=== PATIENT | female | born 1990 | race Asian ===

== ENCOUNTER 2016-09-13 09:20 | Inpatient (IN) | payer BC, OTHER ==
[2016-09-13] MEDS ORDERED: TUBERCULIN PPD 5 TU/0.1ML SYRINGE (IN PATIENT USE ONLY) ID ONE (09:52)
[2016-09-13] MEDS ORDERED: ELECTROLYTE-148 SOLN 1,000 ML IV ONE (10:00)
[2016-09-13 10:22] VITALS: BMI 23.6
[2016-09-13 10:33] LABS: BASOPHIL 0.3 % (0-2.0); EOSINOPHIL 0.4 % (0-4.5); MCH 28.8 pg (25.7-33.7); MCHC 33.6 g/dl (32.0-36.0); MEAN CELL VOLUME 85.6 fl (80-96); NEUTROPHILS 77.4 % (42.8-82.8); PLATELET COUNT 203 K/MM3 (134-434); RDW 13.6 % (11.6-15.6)
[2016-09-13 10:38] LABS: INR 0.91 (0.82-1.09)
[2016-09-13 10:41] LABS: ACTIVATED PTT 31.6 SECONDS (26.9-34.4)
[2016-09-13 10:50] LABS: ANION GAP 9 (8-16); CALCIUM 9.2 mg/dL (8.5-10.1); CO2 22 mmol/L (21-32); CREATININE 0.4 mg/dL (0.55-1.02); GLUCOSE,RANDOM 82 mg/dL (74-106)
--- NOTE | 2016-09-13 11:05 | HP ---
Past Medical History - Admission History of Present Illness: 25 yo @ 39 6/7 wks by first trimester ultrasound, EDC 09/14/2016 uncomplicated Patient presents with chief complaint of contractions which began this morning at 0400 and increased in intensity and frequency. She presented to L&D and was found to be 3 cm and was admitted. She reports movement, denies leakage of fluid or vaginal bleeding. History Source: Patient Limitations to Obtaining History: No Limitations - Past Medical History Cardiovascular: No: HTN Pulmonary: No: Asthma Gastrointestinal: No: GERD ...: 1 ...Para: 0 ...Term: 0 ...: 0 ...Spon : 0 ...Induced : 0 ...Multiple Gestation: 0 ...LMP: 12/11/15 ... Weeks Gestation by Dates: 39.4 ...EDC by Dates: 09/16/16 ...EDC by Sono: 09/14/16 Heme/Onc: No: Anemia - Past Surgical History Past Surgical History: Yes: None Hx Myomectomy: No Hx Transabdominal Cerclage: No - Smoking History Smoking history: Never smoked Have you smoked in the past 12 months: No - Alcohol/Substance Use Hx Alcohol Use: No History of Substance Use: reports: None - Social History History of Recent Travel: No Home Medications - Allergies Allergies/Adverse Reactions: Allergies Allergy/AdvReac Type Severity Reaction Status Date / Time No Known Allergies Allergy Verified 09/13/16 11:40 - Home Medications Home Medications: Ambulatory Orders Tablet 1 tablet PO DAILY 09/13/16 Family Disease History - Family Disease History Family History: Denies Review of Systems - Review of Systems Constitutional: reports: No Symptoms Cardiovascular: reports: No Symptoms Respiratory: reports: No Symptoms Gastrointestinal: reports: No Symptoms Genitourinary: reports: No Symptoms Neurological: reports: No Symptoms Endocrine: reports: No Symptoms Hematology/Lymphatic: reports: No Symptoms Psychiatric: reports: No Symptoms Physical Exam - Maternity Vital Signs: Vital Signs Temperature 98.4 F 09/13/16 10:15 Pulse Rate 72 09/13/16 10:15 Respiratory Rate 18 09/13/16 10:15 Blood Pressure 112/72 09/13/16 10:15 O2 Sat by Pulse Oximetry (%) Constitutional: Yes: Well Nourished, No Distress, Calm Cardiovascular: Yes: Regular Rate and Rhythm Lungs: Clear to auscultation - Abdominal Exam/OB Fundal Height: 40 Number of Fetuses: Single Presentation: Vertex Contractions: Yes Regularity: Regular Intensity: Mod/Strong Monitor Mode: External Heart Rate (range): 130 Category: I Accelerations: Non-Uniform Decelerations: None - Vaginal Exam/OB Vaginal Bleediing: No Dilatation (cm): 4 Effacement (%): 80 Amniotic Membrane Status: Ruptured Amniotic Fluid: Yes: Clear Station: -2 - Physical Exam Edema: No Psychiatric: Yes: Alert, Oriented - Labs Lab Results: CBC, BMP 09/13/16 10:00 PNL: O positive, antibody negative, RPR NR, HBS Ag negative, Rubella Immune, GBS negative, HIV negative Hemorrhage Risk Assessment - Risk Factors Medium Risk Factors: Yes: None High Risk Factors: Yes: None Risk Score: 1 Risk Level: Medium Risk Assessment/Plan 25 yo @ 39 9/7 wks in active labor 1. Admit to L&D 2. Routine labs collected and sent 3. GBS negative 4. Will offer pain medication upon patient's request 5. Will continue expectant management
[2016-09-13] MEDS ORDERED: FENTANYL/BUPIVACAINE/NS/PF - PCEA - 50 ML DISP.SYRIN EP SCH (12:40)
[2016-09-13] MEDS ORDERED: OXYTOCIN 15 UNITS/ LR 250 ML 250 ML IVPB SCH (12:45)
--- NOTE | 2016-09-13 16:12 | PN ---
Ante-Partal Exam - Subjective Subjective: Patient reports pain with contractions Vital Signs: Vital Signs Temperature 98.8 F 09/13/16 15:07 Pulse Rate 86 09/13/16 15:10 Respiratory Rate 18 09/13/16 15:10 Blood Pressure 131/76 09/13/16 15:10 O2 Sat by Pulse Oximetry (%) 98 09/13/16 13:40 Bleeding: Yes Bleeding Description: Mild Headache: No Visual changes: No Right upper quadrant pain: No - Contractions Contractions: Yes Regularity: Regular Intensity: Mod/Strong Monitor Mode: External - Exam during Labor Heart Rate: 135 Variability: Moderate Category: I Monitor Accelerations: Present Monitor Decelerations: None Exam: Vaginal Dilatation (cm): 9 Effacement (%): 100 Amniotic Membrane Status: Ruptured Presentation: Vertex Station: 0 - Intrapartum Hemorrhage Risk Medium Risk Factors: None High Risk Factors: None Risk Score: 0 Risk Level: Low Risk - Assessment/Plan Assessment/Plan: 25 yo active labor 1. good cervical change will continue pitocin 2. GBS negative 3. Category I FHT 4. pain well controlled with epidural 5. Will continue expectant management
--- NOTE | 2016-09-13 21:02 | PN ---
Delivery - Delivery Vaginal Delivery: No Problems Type of Anesthesia: Epidural Episiotomy/Laceration: Left Mediolateral EBL (cc): 300 Delivery, Single - Stages of Labor Date 1st Stage Initiatied: 09/13/16 Time 1st Stage Initiated: 04:00 Date 2nd Stage Initiated: 09/13/16 Time 2nd Stage Initiated: 18:10 Date of Delivery: 09/13/16 Time of Delivery: 20:38 Date Placenta Delivered: 09/13/16 Time Placenta Delivered: 20:52 Placenta: Yes: Spontaneous - Condition of Gender: Male Position: Right, OA - 1 Minute Total Score: 8 5 Minutes Total Score: 9 - Feeding Plan Initial Plan: Elected not to breastfeed exclusively throughout hospitalization Remarks - Remarks Remarks: Patient progressed to fully dilated and at 2037 via delivered a viable female infant in GAGANDEEP position, APGARs 8,9. Weight and length unknown at this time. Head delivered spontaneously, shoulders delivered transversely without difficulty. Infant with spontaneous cry and placed handed to waiting nursing staff. Nose and mouth was bulb suctioned. Cord was clamped and cut. Perineum and vagina examined, a second degree Left labial/lateral laceration that extended to the left sulcus was noted and repaired in the usual fashion. Rectal exam revealed no sutures in rectum. Placenta was delivered spontaneously and intact. 20 units of pitocin in 1 L IVF was given. All counts correct x 2. Mother and stable in LDR. EBL 300cc.
[2016-09-13 21:05] LABS: ARTERIAL BLOOD GAS BASE EXCESS -8.7 meq/l (-2-2); ARTERIAL BLOOD GAS HCO3 20.4 meq/L (22-26)
[2016-09-13 21:06] LABS: ART PUNCT SITE OTHER
[2016-09-13] MEDS ORDERED: WITCH HAZEL 50% (TUCKS) 40 PAD/JAR PAD TP PRN (21:07)
[2016-09-13] MEDS ORDERED: BENZOCAINE 20% 57 GM BOTTLE TP PRN (21:07)
[2016-09-13] MEDS ORDERED: BENZOCAINE 28 GM HEMORRHOIDAL OINTMENT TP PRN (21:07)
[2016-09-13] MEDS ORDERED: BISACODYL 10 MG SUPP.RECT RC PRN (21:07)
[2016-09-13] MEDS ORDERED: METHYLERGONOVINE MALEATE 0.2 MG/1 ML AMP IM PRN (21:07)
[2016-09-13] MEDS ORDERED: oxyCODONE HCL 5 MG TABLET PO PRN (21:07)
[2016-09-13 21:09] LABS: ARTERIAL BLD GAS O2 SATURATION 28.8 % (90-98.9); ARTERIAL BLOOD GAS PO2 20.6 mmHg (80-100); ARTERIAL BLOOD GAS pH 7.17 (7.35-7.45)
[2016-09-13] MEDS ORDERED: D5W-LR W/ 20 UNITS OXYTOCIN 1,000 ML IV SCH (21:15)
[2016-09-13 21:19] LABS: VENOUS BLOOD GAS HCO3 19.2 meq/L (19-25)
[2016-09-13 21:20] LABS: VENOUS PH 7.23 (7.32-7.42)
[2016-09-13] MEDS: IBUPROFEN 600 MG TABLET (FP) PO PRN (22:30)
[2016-09-13] MEDS: ACETAMINOPHEN 325 MG TABLET (FP) PO PRN (22:30)
[2016-09-14] MEDS: IBUPROFEN 600 MG TABLET (FP) PO PRN ×4 (04:57→21:45)
[2016-09-14] MEDS: ACETAMINOPHEN 325 MG TABLET (FP) PO PRN ×4 (04:59→21:46)
[2016-09-14 07:38] LABS: BASOPHIL 0.2 % (0-2.0); EOSINOPHIL 0.1 % (0-4.5); MCH 28.5 pg (25.7-33.7); MCHC 33.3 g/dl (32.0-36.0); MEAN CELL VOLUME 85.7 fl (80-96); MEAN PLT VOLUME 8.6 fl (7.5-11.1); NEUTROPHILS 80.3 % (42.8-82.8); PLATELET COUNT 165 K/MM3 (134-434); RDW 13.3 % (11.6-15.6); WHITE BLOOD COUNT 16.2 K/mm3 (4.0-10.0)
[2016-09-14] MEDS: PRENATAL VITAMINS W/ FOLIC ACID TABLET (FP) PO SCH (09:25)
[2016-09-14] MEDS: FERROUS SO4 325 MG TABLET (FP) PO SCH ×3 (09:25→17:09)
--- NOTE | 2016-09-14 09:56 | PN ---
Post Progress Note - Subjective Subjective: Patient without acute complaints. Reports tolerating oral intake without nausea or vomiting. Ambulating without dizziness. Denies fevers or chills. Pain well controlled with oral pain medication. without difficulty. Passing flatus. Post Day: 1 Type of Delivery: Vital Signs: Vital Signs Temperature 99.3 F 09/14/16 04:00 Pulse Rate 74 09/14/16 04:00 Respiratory Rate 20 09/14/16 04:00 Blood Pressure 125/64 09/14/16 04:00 O2 Sat by Pulse Oximetry (%) 100 09/13/16 22:00 Breast Exam: Yes: Soft Uterus: Yes: Fundus Firm, Fundus below umbilicus, Non-tender Abdomen/GI: Yes: Abdomen soft, Passing flatus, Tolerating PO. No: Tender Lochia: Yes: Serosa Lochia, amount: Small Extremities: Yes: Calves non-tender. No: Edema Perineum: Yes: Laceration Activity: Ambulating - Labs Labs: CBC WBC 16.2 K/mm3 (4.0-10.0) H D 09/14/16 06:00 RBC 3.66 M/mm3 (3.60-5.2) 09/14/16 06:00 Hgb 10.4 GM/dL (10.7-15.3) L D 09/14/16 06:00 Hct 31.4 % (32.4-45.2) L D 09/14/16 06:00 MCV 85.7 fl (80-96) 09/14/16 06:00 MCH 28.5 pg (25.7-33.7) 09/14/16 06:00 MCHC 33.3 g/dl (32.0-36.0) 09/14/16 06:00 RDW 13.3 % (11.6-15.6) 09/14/16 06:00 Plt Count 165 K/MM3 (134-434) 09/14/16 06:00 MPV 8.6 fl (7.5-11.1) 09/14/16 06:00 Neutrophils % 80.3 % (42.8-82.8) 09/14/16 06:00 Lymphocytes % 11.7 % (8-40) D 09/14/16 06:00 Monocytes % 7.7 % (3.8-10.2) 09/14/16 06:00 Eosinophils % 0.1 % (0-4.5) 09/14/16 06:00 Basophils % 0.2 % (0-2.0) 09/14/16 06:00 Assessment/Plan 25 yo PPD # 1 s/p , afebrile, vital signs stable, doing well 1. Continue routine care 2. CBC stable 3. Rh positive status, no rhogam indicated 4. Encourage ambulation 5. Continue oral pain medication 6. Anticipate discharge home day #2
[2016-09-14] MEDS ORDERED: DIPHTH,PERTUSS(ACELL),TET 0.5 ML DISP.SYRIN IM ONE (10:00)
[2016-09-14] MEDS ORDERED: SENNOSIDES/DOCUSATE COMBO (SENNA PLUS) TABLET (UD) PO PRN (22:00)
--- NOTE | 2016-09-15 07:49 | DS ---
Physical Exam-OPHTHALMIC PHOTOGRAPHER Vital Signs: Vital Signs Temperature 98.6 F 09/14/16 22:00 Pulse Rate 98 H 09/14/16 22:00 Respiratory Rate 18 09/14/16 22:00 Blood Pressure 121/76 09/14/16 22:00 O2 Sat by Pulse Oximetry (%) 100 09/13/16 22:00 Constitutional: Yes: Well Nourished, No Distress, Calm Eyes: Yes: WNL, Conjunctiva Clear, EOM Intact HENT: Yes: WNL, Atraumatic, Normocephalic Neck: Yes: WNL, Supple, Trachea Midline Cardiovascular: Yes: WNL, Regular Rate and Rhythm Respiratory: Yes: WNL, Regular, CTA Bilaterally Gastrointestinal: Yes: WNL ...Rectal Exam: Yes: WNL Renal/: Yes: WNL ....Post : Yes: Uterus firm, Uterus non-tender, Slight lochia rubra Breast(s): Yes: WNL Musculoskeletal: Yes: WNL Extremities: Yes: WNL Edema: No Integumentary: Yes: WNL Neurological: Yes: WNL, Alert, Oriented ...Motor Strength: WNL Psychiatric: Yes: WNL, Alert, Oriented Labs: CBC, BMP 09/14/16 06:00 09/13/16 10:00 Delivery - Delivery Vaginal Delivery: No Problems, Spontaneous Type of Anesthesia: Local, Epidural Episiotomy/Laceration: Left Mediolateral, Vaginal Extension/lac, 2nd degree EBL (cc): 300 Delivery, Single - Stages of Labor Date 1st Stage Initiatied: 09/13/16 Time 1st Stage Initiated: 04:00 Date 2nd Stage Initiated: 09/13/16 Time 2nd Stage Initiated: 18:10 Date of Delivery: 09/13/16 Time of Delivery: 20:38 Time Placenta Delivered: 20:52 Placenta: Yes: Spontaneous - Condition of Electrician Wiring/Circular Knitter Present: No Gender: Male Weight: 7 lb 8 oz Position: Right, OA Total Hours ROM (Hrs/Mins): 9hrs/52mins - 1 Minute Total Score: 8 5 Minutes Total Score: 9 - [place] Feeding Plan Initial Plan: Elected not to breastfeed exclusively throughout hospitalization Discharge Summary Reason For Visit: LABOR Procedures: Principal: Condition: Good - Instructions Diet, Activity, Other Instructions: regular diet, follow up office 4 weeks Referrals: Idania Patel MD [Staff Physician] - - Home Medications Comprehensive Discharge Medication List: Ambulatory Orders Tablet 1 tablet PO DAILY 09/13/16 Ibuprofen [Motrin -] 600 mg PO QID #28 tablet 09/14/16
[2016-09-15] MEDS: FERROUS SO4 325 MG TABLET (FP) PO SCH ×2 (08:34→12:00)
[2016-09-15] MEDS: ACETAMINOPHEN 325 MG TABLET (FP) PO PRN (08:35)
[2016-09-15] MEDS: IBUPROFEN 600 MG TABLET (FP) PO PRN (08:35)
[2016-09-15] MEDS: PRENATAL VITAMINS W/ FOLIC ACID TABLET (FP) PO SCH (09:40)
[2016-09-15 10:54] VITALS: BP 128/74; PULSE 74; TEMP 97.9
== END 2016-09-15 13:40 | disposition home or self-care (01) | DRG 775 ==
LOC: JLDR 09:20 → J3W 23:30
PROVIDERS: ADMIT Obstetrics & Gynecology; ATTEND Obstetrics & Gynecology
PROC: 10E0XZZ Delivery of Products of Conception, External Approach (ICD-10-PCS; principal; 2016-09-13)
PROC: 0KQM0ZZ Repair Perineum Muscle, Open Approach (ICD-10-PCS; 2016-09-13)
DX: O70.1 Second degree perineal laceration during delivery (principal); Z37.0 Single live birth; Z3A.39 39 weeks gestation of pregnancy
CPT/HCPCS: 36415; 36600; 59409; 80048; 82803; 85025; 85610; 85730; 86593; 86850; 86900; 86901; 90715

== ENCOUNTER 2018-05-10 23:20 | Inpatient (IN) | payer BC, OTHER ==
[2018-05-11] MEDS ORDERED: OXYTOCIN 20 UNITS in 0.9% NS 20 UNIT/1,000 ML INFUS.BAG IV ONE (00:02)
[2018-05-11] MEDS ORDERED: AMPICILLIN SODIUM 2 GM VIAL ONE (00:03)
--- NOTE | 2018-05-11 00:38 | HP ---
Past Medical History - Primary Care Physician PCP:: [place] - Admission Chief Complaint: 27yo P1 with at EGA 40wk in spontaneous labor. History of Present Illness: Vag GBS (+) History Source: Patient, Medical Record Limitations to Obtaining History: No Limitations - Past Medical History SUPERVISOR AGENCY APPOINTMENTS: No: Alzheimer's, CVA, Dementia, Migraine, Multiple Sclerosis, Peripheral Neuropathy, Parkinson's, Seizure, Syncope, TIA, Vertigo, Other Cardiovascular: No: AFIB, Aneurysm, Aortic Insufficiency, Aortic Stenosis, CAD, CHF, Deep Vein Thrombosis, HTN, Hyperlipdemia, ID, Mitral Insufficiency, Mitral Stenosis, Murmur, Pulmonary Hypertension, Other Pulmonary: No: Asthma, Bronchitis, Cancer, COPD, O2 Dependent, Pneumonia, Previously Intubated, Pulmonary Embolus, Pulmonary Fibrosis, Sleep Apnea, Other Gastrointestinal: No: Ascites, Cancer, Constipation, Crohn's Disease, Diverticulitis, Diverticulosis, Esophageal Varices, Gastritis, GERD, GI Bleed, Hemorrhoids, Hiatal Hernia, Inflamatory Bowel Disease, Irritable Bowel Disease, Pancreatitis, Peptic Ulcer Disease, Ulcerative Colitis, Other Hepatobiliary: No: Cirrhosis, Cholelithiasis, Cholecystitis, Choledocholithiasis , Hepatitis A, Hepatitis B, Hepatitis C, Other Renal/: No: Renal Failure, Renal Inusuff, BPH, Cancer, Hematuria, Hemodialysis , Neurogenic Bladder, Renal Calculi, UTI, Other Reproductive: No: Ectopic , Endometriosis, Fibroids, PID, Polycystic Ovary Syndrome, Postmenopausal, Other ...: 2 ...Para: 1 ( x 1) ...Term: 1 ... Weeks Gestation by Dates: 40 Heme/Onc: No: Anemia, B12 Deficiency, Bleeding Disorder, Cancer, Current Chemotherapy, Current Radiation Therapy, Hemochromatosis, Hypercoaguable State, Myeloproliferative Synd, Sickle Cell Disease, Sickle Cell Trait, Thrombocytopenia, Other Infectious Disease: No: AIDS, C-Diff, Herpes Zoster, HIV, MRSA, STD's, Tuberculosis, VREF, Other Psych: No: Addictions, Anxiety, Bipolar, Depression, Panic, Psychosis, Schizophrenia, Other Musculoskeletal: No: Bursitis, Chronic low back pain, Hemiparesis, Hemiplegia, Osteoarthritis, Paraplegia, Other Rheumatology: No: Fibromyalgia, Gout, Lupus, Rheumatoid Arthritis, Sarcoidosis, Vasculitis, Other ENT: No: Allergic Rhinitis, Sinusitis, Other Endocrine: Yes: Hypothyroidism Dermatology: No: Basal Cell, Cellulitis, Eczema, Melanoma, Psoriasis, Squamous Cell, Other - Past Surgical History Past Surgical History: Yes: None Hx Myomectomy: No Hx Transabdominal Cerclage: No - Smoking History Smoking history: Never smoked Have you smoked in the past 12 months: No - Alcohol/Substance Use Hx Alcohol Use: No History of Substance Use: reports: None - Social History Usual Living Arrangement: Yes: With Spouse, With Child ADL: Independent History of Recent Travel: No Home Medications - Allergies Allergies/Adverse Reactions: Allergies Allergy/AdvReac Type Severity Reaction Status Date / Time No Known Allergies Allergy Verified 05/11/18 00:16 - Home Medications Home Medications: Ambulatory Orders Tablet 1 tablet PO DAILY 09/13/16 Levothyroxine Sodium [Synthroid] 75 mcg PO DAILY 05/11/18 Family Disease History - Family Disease History Family Disease History: Diabetes: Father Review of Systems - Review of Systems Constitutional: reports: Other (Labor pains) Eyes: reports: No Symptoms HENT: reports: No Symptoms Neck: reports: No Symptoms Cardiovascular: reports: No Symptoms Respiratory: reports: No Symptoms Gastrointestinal: reports: No Symptoms Genitourinary: reports: No Symptoms Breasts: reports: No Symptoms Reported Musculoskeletal: reports: No Symptoms Integumentary: reports: No Symptoms Neurological: reports: No Symptoms Endocrine: reports: No Symptoms Hematology/Lymphatic: reports: No Symptoms Psychiatric: reports: No Symptoms Pain Intensity: 10 Physical Exam - Maternity Constitutional: Yes: Well Nourished, Moderate Distress Eyes: Yes: WNL, Conjunctiva Clear HENT: Yes: WNL, Atraumatic, Normocephalic Neck: Yes: WNL, Supple, Trachea Midline Cardiovascular: Yes: WNL, Regular Rate and Rhythm Lungs: Clear to auscultation, Normal air movement Breast(s): Yes: WNL - Abdominal Exam/OB Fundal Height: 39 Number of Fetuses: Single Presentation: Vertex Contractions: Yes Regularity: Regular Intensity: Mod/Strong Monitor Mode: External Heart Rate (range): 150 Heart Rate Location: Midline Category: II Accelerations: None Decelerations: None - Vaginal Exam/OB Vaginal Bleediing: Yes, Light Speculum Exam: No Dilatation (cm): 9 Effacement (%): 100 Amniotic Membrane Status: Ruptured (SROM) Amniotic Fluid: Yes: Clear Presentation: Vertex/Position Station: 0 - Physical Exam Musculoskeletal: Yes: WNL Extremities: Yes: WNL Edema: Yes Edema: LLE: Trace, RLE: Trace Integumentary: Yes: WNL Deep Tendon Reflex Grade: Normal +2 ...Motor Strength: WNL Psychiatric: Yes: WNL, Alert, Oriented Hemorrhage Risk Assessment - Risk Factors Medium Risk Factors: Yes: None High Risk Factors: Yes: None Risk Score: 1 Risk Level: Medium Risk Assessment/Plan 27yo P1 with at EGA 40wk in spontaneous labor. Pt is in active labor. SROM now with clear fluid. progressing quickly. Anticipate .
[2018-05-11] MEDS ORDERED: AMPICILLIN - 2 GM in SODIUM CHLORIDE 100 ML IVPB ONE (00:44)
[2018-05-11] MEDS ORDERED: DEXTROSE 5%-LACTATED RINGERS 1,000 ML IV SCH (00:45)
[2018-05-11 00:46] LABS: BASO % 0.1 % (0-2.0); EOS % 0.2 % (0-4.5); HEMATOCRIT 40.1 % (32.4-45.2); HEMOGLOBIN 13.6 GM/dL (10.7-15.3); LYMPH % 16.9 % (8-40); MCH 28.3 pg (25.7-33.7); MCHC 33.9 g/dl (32.0-36.0); MEAN CELL VOLUME 83.5 fl (80-96); MEAN PLT VOLUME 8.2 fl (7.5-11.1); MONO % 5.7 % (3.8-10.2); NEUT % 77.1 % (42.8-82.8); PLATELET COUNT 227 K/MM3 (134-434); RDW 13.8 % (11.6-15.6); WHITE BLOOD COUNT 9.3 K/mm3 (4.0-10.0)
[2018-05-11 00:58] LABS: INR 0.9 (0.83-1.09); PROTHROMBIN TIME (PATIENT) 10.6 SEC (9.7-13.0)
[2018-05-11 01:01] LABS: ACTIVATED PTT 29.7 SECONDS (25.2-36.5)
[2018-05-11] MEDS ORDERED: BISACODYL 10 MG SUPP.RECT RC PRN (01:10)
[2018-05-11] MEDS ORDERED: WITCH HAZEL 50% (TUCKS) 40 PAD/JAR PAD TP PRN (01:10)
[2018-05-11] MEDS ORDERED: BENZOCAINE 28 GM HEMORRHOIDAL OINTMENT TP PRN (01:10)
[2018-05-11] MEDS ORDERED: METHYLERGONOVINE MALEATE 0.2 MG/1 ML AMP IM PRN (01:10)
[2018-05-11] MEDS ORDERED: IBUPROFEN 600 MG TABLET (FP) PO PRN (01:10)
[2018-05-11] MEDS ORDERED: BENZOCAINE 20% 57 GM BOTTLE TP PRN (01:10)
[2018-05-11 01:13] LABS: ANION GAP 8 MMOL/L (8-16); BLOOD UREA NITROGEN 9 mg/dL (7-18); CALCIUM 8.9 mg/dL (8.5-10.1); CHLORIDE 105 mmol/L (98-107); CO2 23 mmol/L (21-32); CREATININE 0.4 mg/dL (0.55-1.3); GLUCOSE,RANDOM 136 mg/dL (74-106); POTASSIUM 3.8 mmol/L (3.5-5.1); SODIUM 136 mmol/L (136-145)
[2018-05-11] MEDS ORDERED: OXYTOCIN 20 UNITS in 0.9% NS 20 UNIT/1,000 ML INFUS.BAG IV SCH (01:15)
[2018-05-11 01:45] VITALS: BMI 23.0
[2018-05-11] MEDS ORDERED: IBUPROFEN 600 MG TABLET (FP) PO ONE (01:54)
[2018-05-11] MEDS ORDERED: ACETAMINOPHEN 325 MG TABLET (FP) ONE (01:54)
[2018-05-11] MEDS: ACETAMINOPHEN 325 MG TABLET (FP) PO PRN ×2 (01:55→19:07)
[2018-05-11] MEDS: LEVOTHYROXINE NA 75 MCG TABLET (FP) PO SCH (06:17)
[2018-05-11] MEDS ORDERED: TUBERCULIN PPD 5 TU/0.1ML SYRINGE (IN PATIENT USE ONLY) ID ONE (06:30)
[2018-05-11] MEDS: PRENATAL VITAMINS W/ FOLIC ACID TABLET (FP) PO SCH (10:07)
--- NOTE | 2018-05-11 14:44 | PN ---
Delivery - Delivery Vaginal Delivery: No Problems, Spontaneous Type of Anesthesia: None Episiotomy/Laceration: None EBL (cc): 300 Delivery, Single - Stages of Labor Date 1st Stage Initiatied: 05/10/18 Time 1st Stage Initiated: 17:00 Date 2nd Stage Initiated: 05/11/18 Time 2nd Stage Initiated: 00:40 Date of Delivery: 05/11/18 Time of Delivery: 00:48 Date Placenta Delivered: 05/11/18 Time Placenta Delivered: 00:55 Placenta: Yes: Spontaneous, Normal Configuration - Condition of Infant Toll Service Observer/C2 Tactical Analysis Technician Present: No Gender: Male Weight: 3.09 kg Position: Left Total Hours ROM (Hrs/Mins): 15min - 1 Minute Total Score: 9 5 Minutes Total Score: 9 - [place] Feeding Plan Initial Plan: Elected not to breastfeed exclusively throughout hospitalization
[2018-05-11] MEDS: IBUPROFEN 600 MG TABLET (FP) PO PRN (19:09)
--- NOTE | 2018-05-11 22:45 | PN ---
Progress Note (short form) - Note Progress Note: Patient states desires circumcision for infant. Discussed risks including infection, bleeding, damage to tip of penis, and unsatisfactory result, resulting in surgical repair or repeat circumcision. Patient expressed understanding and consents to procedure. Reviewed infants chart, cleared for circumcision and normal genitalia per bin packer, Dr. Palacios
[2018-05-12] MEDS: ACETAMINOPHEN 325 MG TABLET (FP) PO PRN ×4 (03:16→20:54)
[2018-05-12] MEDS: IBUPROFEN 600 MG TABLET (FP) PO PRN ×3 (03:17→20:55)
[2018-05-12] MEDS: LEVOTHYROXINE NA 75 MCG TABLET (FP) PO SCH (06:37)
--- NOTE | 2018-05-12 07:07 | PN ---
Post Progress Note - Subjective Subjective: Patient without acute complaints. Reports tolerating oral intake without nausea or vomiting. Ambulating without dizziness. Denies fevers or chills. Pain well controlled with oral pain medication. without difficulty. Passing flatus. Post Day: 1 Type of Delivery: Vital Signs: Vital Signs Temperature 98.1 F 05/11/18 22:00 Pulse Rate 92 H 05/11/18 22:00 Respiratory Rate 18 05/11/18 22:00 Blood Pressure 112/52 L 05/11/18 22:00 O2 Sat by Pulse Oximetry (%) Breast Exam: Yes: Soft Uterus: Yes: Fundus Firm, Fundus below umbilicus, Non-tender Abdomen/GI: Yes: Abdomen soft, Passing flatus, Tolerating PO. No: Abdominal Distention, Tender Lochia: Yes: Serosa Lochia, amount: Small Extremities: Yes: Calves non-tender. No: Edema Perineum: Yes: Intact Activity: Ambulating - Labs Labs: CBC WBC 9.3 K/mm3 (4.0-10.0) 05/11/18 00:05 RBC 4.80 M/mm3 (3.60-5.2) 05/11/18 00:05 Hgb 13.6 GM/dL (10.7-15.3) 05/11/18 00:05 Hct 40.1 % (32.4-45.2) D 05/11/18 00:05 MCV 83.5 fl (80-96) 05/11/18 00:05 MCH 28.3 pg (25.7-33.7) 05/11/18 00:05 MCHC 33.9 g/dl (32.0-36.0) 05/11/18 00:05 RDW 13.8 % (11.6-15.6) 05/11/18 00:05 Plt Count 227 K/MM3 (134-434) D 05/11/18 00:05 MPV 8.2 fl (7.5-11.1) 05/11/18 00:05 Absolute Neuts (auto) 7.2 K/mm3 (1.5-8.0) 05/11/18 00:05 Neutrophils % 77.1 % (42.8-82.8) 05/11/18 00:05 Lymphocytes % 16.9 % (8-40) D 05/11/18 00:05 Monocytes % 5.7 % (3.8-10.2) 05/11/18 00:05 Eosinophils % 0.2 % (0-4.5) D 05/11/18 00:05 Basophils % 0.1 % (0-2.0) 05/11/18 00:05 Nucleated RBC % 0 % (0-0) 05/11/18 00:05 Assessment/Plan 27 yo PPD # 1 s/p , afebrile, vital signs stable, doing well 1. Continue routine care. 2. Follow up AM CBC 3. Rh positive status, no rhogam indicated. 4. Encourage ambulation 5. Continue oral pain medication 6. Anticipate discharge home day #2
--- NOTE | 2018-05-12 07:08 | DS ---
Physical Exam-RCIS Vital Signs: Vital Signs Temperature 98.1 F 05/11/18 22:00 Pulse Rate 92 H 05/11/18 22:00 Respiratory Rate 18 05/11/18 22:00 Blood Pressure 112/52 L 05/11/18 22:00 O2 Sat by Pulse Oximetry (%) Labs: CBC, BMP 05/11/18 00:05 05/11/18 00:05 Delivery - Delivery Vaginal Delivery: No Problems, Spontaneous Type of Anesthesia: None Episiotomy/Laceration: None EBL (cc): 300 Delivery, Single - Stages of Labor Date 1st Stage Initiatied: 05/10/18 Time 1st Stage Initiated: 17:00 Date 2nd Stage Initiated: 05/11/18 Time 2nd Stage Initiated: 00:40 Date of Delivery: 05/11/18 Time of Delivery: 00:48 Time Placenta Delivered: 00:55 Placenta: Yes: Spontaneous, Normal Configuration - Condition of Doctor Of Dental Surgery/Automatic Nailing Machine Feeder Present: No Gender: Male Weight: 6 lb 13 oz Position: Left Total Hours ROM (Hrs/Mins): 15min - 1 Minute Total Score: 9 5 Minutes Total Score: 9 - [place] Feeding Plan Initial Plan: Elected not to breastfeed exclusively throughout hospitalization Discharge Summary Reason For Visit: LABOR ADMIT Procedures: Principal: Vaginal Delivery Hospital Course: Patient was admitted in spontaneous labor, progressed to deliver via . PPD # 1 patient ambulated, voiding, passing gas, tolerating oral intake and with adequate pain control. She fulfilled all criteria for discharge PPD #2 Condition: Good - Instructions Diet, Activity, Other Instructions: Physical activity Resume your normal everyday activity as tolerated no heavy lifting or exercise until seen by your surgeon. You may walk unlimited eva of and climb stairs. You may resume driving the car when you feel safe and comfortable behind the wheel. No sexual activity as instructed. Diet There are no dietary restrictions. Eat healthy, high-fiber foods. Drink 6 to 8 glasses of liquid each day. This will assist in keeping your bowels are regular. Pain management You may take Tylenol or acetaminophen or Ibuprofen (for example, Motrin, Advil etc.) from my pain prescription medication is ordered should be taken as prescribed for moderate to severe pain. Call MD for any of the following: Severe pain not relieved by medication Fever of 101 or higher Excessive bleeding or drainage on dressing Inability to urinate Disposition: HOME - Home Medications Comprehensive Discharge Medication List: Ambulatory Orders Tablet 1 tablet PO DAILY 09/13/16 Levothyroxine Sodium [Synthroid] 75 mcg PO DAILY 05/11/18
[2018-05-12 07:18] LABS: BASO % 0.2 % (0-2.0); EOS % 1.4 % (0-4.5); HEMOGLOBIN 11.8 GM/dL (10.7-15.3); LYMPH % 32.9 % (8-40); MCH 28.6 pg (25.7-33.7); MCHC 34.7 g/dl (32.0-36.0); MEAN CELL VOLUME 82.4 fl (80-96); MEAN PLT VOLUME 8.1 fl (7.5-11.1); MONO % 5.8 % (3.8-10.2); NEUT % 59.7 % (42.8-82.8); PLATELET COUNT 195 K/MM3 (134-434); RBC 4.13 M/mm3 (3.60-5.2); RDW 13.9 % (11.6-15.6); WHITE BLOOD COUNT 8.4 K/mm3 (4.0-10.0)
[2018-05-12] MEDS: PRENATAL VITAMINS W/ FOLIC ACID TABLET (FP) PO SCH (09:21)
[2018-05-12] MEDS ORDERED: SENNOSIDES/DOCUSATE COMBO (SENNA PLUS) TABLET (UD) PO PRN (22:00)
[2018-05-13] MEDS: LEVOTHYROXINE NA 75 MCG TABLET (FP) PO SCH (06:24)
[2018-05-13] MEDS: PRENATAL VITAMINS W/ FOLIC ACID TABLET (FP) PO SCH (10:10)
--- NOTE | 2018-05-13 10:13 | PN ---
Post Progress Note - Subjective Subjective: Patient without acute complaints. Reports tolerating oral intake without nausea or vomiting. Ambulating without dizziness. Denies fevers or chills. Pain well controlled with oral pain medication. without difficulty. Passing flatus. Post Day: 2 Type of Delivery: Vital Signs: Vital Signs Temperature 98.0 F 05/12/18 20:20 Pulse Rate 90 05/12/18 20:20 Respiratory Rate 20 05/12/18 20:20 Blood Pressure 124/58 L 05/12/18 20:20 O2 Sat by Pulse Oximetry (%) Breast Exam: Yes: Soft Uterus: Yes: Fundus Firm Abdomen/GI: Yes: Abdomen soft, Passing flatus, Tolerating PO. No: Abdominal Distention, Tender Lochia: Yes: Serosa Lochia, amount: Small Extremities: Yes: Calves non-tender. No: Edema Activity: Ambulating - Labs Labs: CBC WBC 8.4 K/mm3 (4.0-10.0) 05/12/18 06:45 RBC 4.13 M/mm3 (3.60-5.2) 05/12/18 06:45 Hgb 11.8 GM/dL (10.7-15.3) 05/12/18 06:45 Hct 34.0 % (32.4-45.2) D 05/12/18 06:45 MCV 82.4 fl (80-96) 05/12/18 06:45 MCH 28.6 pg (25.7-33.7) 05/12/18 06:45 MCHC 34.7 g/dl (32.0-36.0) 05/12/18 06:45 RDW 13.9 % (11.6-15.6) 05/12/18 06:45 Plt Count 195 K/MM3 (134-434) 05/12/18 06:45 MPV 8.1 fl (7.5-11.1) 05/12/18 06:45 Absolute Neuts (auto) 5.0 K/mm3 (1.5-8.0) 05/12/18 06:45 Neutrophils % 59.7 % (42.8-82.8) D 05/12/18 06:45 Lymphocytes % 32.9 % (8-40) D 05/12/18 06:45 Monocytes % 5.8 % (3.8-10.2) 05/12/18 06:45 Eosinophils % 1.4 % (0-4.5) D 05/12/18 06:45 Basophils % 0.2 % (0-2.0) 05/12/18 06:45 Nucleated RBC % 0 % (0-0) 05/12/18 06:45 Assessment/Plan 27 yo PPD # 2 s/p , afebrile, vital signs stable, doing well, stable for discharge home 1. Patient stable for discharge home today. 2. Patient encouraged to contact MD for: - Severe pain not controlled by oral pain medication - Fevers or chills - Nausea or vomiting, intolerance of oral intake 3. Patient to follow up in office in 4-6 weeks for visit
[2018-05-13] MEDS: IBUPROFEN 600 MG TABLET (FP) PO PRN (10:41)
[2018-05-13] MEDS: ACETAMINOPHEN 325 MG TABLET (FP) PO PRN (10:43)
[2018-05-13 11:18] VITALS: BP 122/66; PULSE 73; TEMP 97.6
== END 2018-05-13 13:15 | disposition home or self-care (01) | DRG 807 ==
LOC: UNDOADMIN 23:20 → JLDR 23:20 → J3W 05-11 03:45
PROVIDERS: ADMIT Obstetrics & Gynecology; ATTEND Obstetrics & Gynecology
PROC: 10E0XZZ Delivery of Products of Conception, External Approach (ICD-10-PCS; principal; 2018-05-11)
DX: O80 Encounter for full-term uncomplicated delivery (principal); Z37.0 Single live birth; Z3A.40 40 weeks gestation of pregnancy; Z22.330 Carrier of Group B streptococcus
CPT/HCPCS: 36415; 59409; 71046-TC-FY; 80048; 85025; 85610; 85730; 86593; 86850; 86900; 86901

== ENCOUNTER 2018-07-10 04:47 | Day surgery (SDC) | payer BC, OTHER ==
[2018-07-09 12:52] VITALS: BMI 19.9
[2018-07-10] MEDS ORDERED: ACETAMINOPHEN 325 MG TABLET (FP) PO PRN (13:26)
[2018-07-10] MEDS ORDERED: IBUPROFEN 400 MG TABLET (FP) PO PRN (13:26)
[2018-07-10] MEDS ORDERED: ONDANSETRON 4 MG/2 ML VIAL IVPUSH PRN ×2 (13:27→15:02)
--- NOTE | 2018-07-10 13:30 | HP ---
Admitting History and Physical - Admission History of Present Illness: 30 yo with hx/o L bartholin cyst, for removal, possible marsupialization History Source: Patient Limitations to Obtaining History: No Limitations - Past Medical History Pulmonary: No: Asthma ...LMP: 07/10/17 ...LMP Comment: post , nursing mother ...: No Heme/Onc: No: Anemia Endocrine: Yes: Hypothyroidism - Past Surgical History Past Surgical History: Yes: None - Smoking History Smoking history: Never smoked Have you smoked in the past 12 months: No - Alcohol/Substance Use Hx Alcohol Use: No History of Substance Use: reports: None - Social History ADL: Independent History of Recent Travel: No Home Medications - Allergies Allergies/Adverse Reactions: Allergies Allergy/AdvReac Type Severity Reaction Status Date / Time No Known Allergies Allergy Verified 07/09/18 12:45 - Home Medications Home Medications: Ambulatory Orders Levothyroxine Sodium [Synthroid] 75 mcg PO DAILY 05/11/18 Family Disease History - Family Disease History Family History: Denies Family Disease History: Diabetes: Father Review of Systems - Review of Systems Constitutional: reports: No Symptoms Neck: reports: No Symptoms Cardiovascular: reports: No Symptoms Respiratory: reports: No Symptoms Gastrointestinal: reports: No Symptoms Genitourinary: reports: No Symptoms Musculoskeletal: reports: No Symptoms Integumentary: reports: No Symptoms Neurological: reports: No Symptoms Endocrine: reports: No Symptoms Hematology/Lymphatic: reports: No Symptoms Psychiatric: reports: No Symptoms Physical Examination Vital Signs: Vital Signs Temperature 97.7 F 07/10/18 13:10 Pulse Rate 65 07/10/18 13:10 Respiratory Rate 65 H 07/10/18 13:10 Blood Pressure 107/72 07/10/18 13:10 O2 Sat by Pulse Oximetry (%) 100 07/10/18 13:10 Constitutional: Yes: Well Nourished, No Distress, Calm Respiratory: Yes: Regular, CTA Bilaterally Gastrointestinal: Yes: Normal Bowel Sounds, Soft Neurological: Yes: WNL Psychiatric: Yes: Alert, Oriented Assessment/Plan 27 yo with left bartholin cyst for excision, possible marsupialization 1. Consent reviewed and signed 2. Preop labs reveiwed 3. SCDs for DVT prophylaxis 4. Will proceed to OR
[2018-07-10] MEDS ORDERED: LIDOCAINE 1%-EPI 1:100,000 30 ML MDV IJ ONE (14:34)
[2018-07-10] MEDS ORDERED: PROPOFOL 20 ML ONE (14:36)
[2018-07-10] MEDS ORDERED: DEXAMETHASONE SOD PHOSPHATE 4 MG/1 ML VIAL ONE (14:36)
[2018-07-10] MEDS ORDERED: MIDAZOLAM HCL 2 MG/2 ML SINGLE DOSE VIAL ONE ×2 (14:36)
[2018-07-10] MEDS ORDERED: KETOROLAC TROMETHAMINE 30 MG/1 ML VIAL ONE (14:36)
[2018-07-10] MEDS ORDERED: ceFAZolin SODIUM 1 GM VIAL IVPB ONE (14:39)
[2018-07-10] MEDS ORDERED: LIDOCAINE 1%/EPI 1:100000 (20 ML MULTI DOSE VIAL) IJ ONE ×2 (14:52)
[2018-07-10] MEDS ORDERED: PROMETHAZINE HCL 25 MG/1 ML VIAL IVPUSH PRN (15:02)
[2018-07-10] MEDS ORDERED: oxyCODONE HCL 5 MG TABLET PO PRN (15:02)
[2018-07-10 16:26] VITALS: TEMP 98
[2018-07-10 17:54] VITALS: BP 110/76; PULSE 68
--- NOTE | 2018-07-10 17:58 | OP ---
Operative Note - Note: Operative Date: 07/10/18 Pre-Operative Diagnosis: Left bartholin gland cyst Operation: marsupialization of Left bartholin gland Post-Operative Diagnosis: Same as Pre-op Surgeon: Idania Patel Anesthesiologist/CYCLING INSTRUCTOR: Alexsander Martin Anesthesia: MAC Specimens Removed: portion of bartholin cyst wall Estimated Blood Loss (mls): 30 Operative Report Dictated: Yes
--- NOTE | 2018-07-10 22:24 | OP ---
DATE OF OPERATION: 07/10/2018 ATTENDING PHYSICIAN: Les Patel MD PREOPERATIVE DIAGNOSIS: Left Bartholin cyst. POSTOPERATIVE DIAGNOSIS: Left Bartholin cyst. PROCEDURE: Left Bartholin gland marsupialization and excision of portion of cyst wall. SURGEON: Les Patel MD ANESTHESIA: Alexsander Martin MD; sedation. ESTIMATED BLOOD LOSS: 30 mL. INDICATION: The patient is a 27-year-old with history of recurrent left Bartholin gland cyst desiring surgical intervention. She was counseled regarding surgical management. Risks, benefits, alternatives, and complications of procedure were discussed, including infection, bleeding, damage to surrounding organs. She expressed understanding and was brought to the operating room. When anesthesia was found to be adequate, patient was prepped and draped in normal sterile fashion and placed in dorsal lithotomy position. Examination of the vulva revealed a large left Bartholin gland swelling. An approximately 2-cm incision was made adjacent to the hymenal ring and identification of the gland was performed. Prior to skin incision, a 1:1 mix of lidocaine with 1% epinephrine was injected; approximately 10 mL were used. The gland was identified and the borders were bluntly dissected. The Bartholin gland was inadvertently ruptured and probing of the Bartholin gland revealed that the gland extended approximately 7 cm posteriorly and approximately 3 cm anteriorly. Given the large size of the Bartholin gland, the decision was made to proceed with marsupialization. A portion of the cyst wall was then excised and the perimeter of the cyst wall was then sutured using 0 Vicryl and 2-0 Vicryl in interrupted fashion. Good hemostasis was noted. The patient tolerated the procedure well. Estimated blood loss is 30 mL. The patient was brought to the recovery room in stable condition. LES PATEL M.D. [id number]
--- NOTE | 2018-07-12 15:40 | PATH ---
Surgical Pathology Report Patient Name: STACY KOENIG [facility]. Rec. #: [id number] /Age/Gender: 1990 (Age: 27) / F Account: [id number] Location: [facility] SURGICAL Taken: 07/10/2018 Received: 07/11/2018 Reported: 07/12/2018 Physicians: Idania Patel Specimen(s) Received LEFT BARTHOLIN'S CYST WALL Clinical History Cyst of left Bartholin's gland duct Final Diagnosis BARTHOLIN'S CYST WALL, LEFT, EXCISION: SIMPLE CYST, PARTIALLY LINED BY TRANSITIONAL-TYPE EPITHELIUM, CONSISTENT WITH BARTHOLIN'S CYST. Electronically Signed Debbie Goode M.D. Gross Description Received in formalin, labeled "left Bartholin cyst wall" is a 2.8 x 2 x 0.2 cm portion of dark morales cystic appearing tissue. The specimen is serially sectioned and entirely submitted in one cassette. AE/07/11/2018 ebram/07/11/2018
== END 2018-07-10 17:30 | disposition home or self-care (01) ==
LOC: JASU-SURG 04:47
PROVIDERS: ATTEND Obstetrics & Gynecology
PROC: 0UBL0ZZ Excision of Vestibular Gland, Open Approach (ICD-10-PCS; principal; 2018-07-10 14:00)
DX: N75.0 Cyst of Bartholin's gland (principal)
CPT/HCPCS: 88304-TC; 94760